=== PATIENT | male | born 1950 | race Caucasian/White ===

== ENCOUNTER 2021-03-20 16:48 | Outpatient (CLI) | payer BC, MEDICARE ==
[2021-03-20 17:56] LABS: Prothrombin Time 10.9 sec (9.5-12.1)
[2021-03-20 17:57] LABS: Anion Gap 13 mmol/L (10-20); BUN (Urea Nitrogen) 25 mg/dL (8.4-25.7); Calc. Creatinine Clearance 0 mL/min (70-130); Calcium 9.3 mg/dL (7.8-10.44); Carbon Dioxide 29 mmol/L (23-31); Chloride 105 mmol/L (98-107); Glucose 80 mg/dL (83-110); Potassium 4.1 mmol/L (3.5-5.1); Sodium 143 mmol/L (136-145)
[2021-03-20 18:05] LABS: Hemoglobin 15.4 g/dL (13.5-17.5); Mean Corpuscular Volume 94.2 fl (81.2-95.1); Mean Platelet Volume 13.5 fl (7.4-10.4); Platelet Count 166 10x3/uL (150-450); Red Blood Cell (RBC) Count 4.96 10x6/uL (4.32-5.72); White Blood Cell (WBC) Count 9.4 10x3/uL (3.5-10.5)
[2021-03-21 12:04] LABS: SARS-CoV-2 PCR by NAA Not Detected (NotDetected)
== END 2021-03-20 16:49 | disposition home or self-care (01) ==
LOC: LABBT 16:48
PROVIDERS: ATTEND Internal Medicine Cardiovascular Disease
DX: Z01.812 Encounter for preprocedural laboratory examination (principal); I48.0 Paroxysmal atrial fibrillation; Z20.822 Contact with and (suspected) exposure to COVID-19
CPT/HCPCS: 80048; 85027; 85610; U0003; U0005

== ENCOUNTER 2021-03-25 06:14 | Day surgery (SDC) | payer MEDICARE, BC ==
[2021-03-24 13:18] VITALS: BMI 31.8
[2021-03-25] MEDS ORDERED: Heparin 25,000 units/D5W 500 ML ONE (06:42)
[2021-03-25] MEDS ORDERED: Heparin 10,000 UNITS/ 10 ML VIAL ONE (06:42)
[2021-03-25] MEDS ORDERED: Fentanyl 100 MCG/2 ML VIAL ONE (07:07)
[2021-03-25] MEDS ORDERED: Glycopyrrolate 0.2 MG/ML 5 ML SYRINGE ONE (08:04)
[2021-03-25] MEDS ORDERED: Rocuronium Bromide 10 MG/ML (10ML VIAL) ONE (08:04)
[2021-03-25] MEDS ORDERED: ePHEDrine 50 MG/ML VIAL ONE (08:04)
[2021-03-25] MEDS ORDERED: Ondansetron PF 4 MG/2 ML Vial ONE (08:04)
[2021-03-25] MEDS ORDERED: PROPOFOL 200 MG/20 ML VIAL ONE (08:04)
[2021-03-25] MEDS ORDERED: Dexamethasone 20 MG/5 ML VIAL ONE (08:04)
[2021-03-25] MEDS ORDERED: Lidocaine 1% PF 5 ML VIAL ONE (08:04)
[2021-03-25] MEDS ORDERED: Protamine Sulfate 50 MG/5 ML VIAL ONE (09:59)
== END 2021-03-25 15:24 | disposition home or self-care (01) ==
LOC: CCL 06:14
PROVIDERS: ATTEND Internal Medicine Cardiovascular Disease
PROC: B24CZZ4 Ultrasonography of Pericardium, Transesophageal (ICD-10-PCS; principal; 2021-03-25)
PROC: B246ZZ4 Ultrasonography of Right and Left Heart, Transesophageal (ICD-10-PCS; 2021-03-25)
PROC: B244ZZ3 Ultrasonography of Right Heart, Intravascular (ICD-10-PCS; 2021-03-25)
PROC: 02583ZZ Destruction of Conduction Mechanism, Percutaneous Approach (ICD-10-PCS; 2021-03-25)
PROC: 02K83ZZ Map Conduction Mechanism, Percutaneous Approach (ICD-10-PCS; 2021-03-25)
DX: I48.0 Paroxysmal atrial fibrillation (principal); I11.9 Hypertensive heart disease without heart failure; I70.0 Atherosclerosis of aorta; E78.5 Hyperlipidemia, unspecified; J44.9 Chronic obstructive pulmonary disease, unspecified; G57.82 Other specified mononeuropathies of left lower limb; Z79.01 Long term (current) use of anticoagulants; Z79.899 Other long term (current) drug therapy; Z88.2 Allergy status to sulfonamides; Z88.5 Allergy status to narcotic agent
CPT/HCPCS: 85347; 93005; 93312; 93613; 93655; 93656; 93657; 93662; C1731; C1732; C1759; C1776; C1894; C2630; J1644; J2720; J3010

== ENCOUNTER → 2023-07-08 | Day surgery (SDC) | payer MEDICARE, BC ==
[2023-07-07 12:01] VITALS: BMI 31.4
[~2023-07-08] MED LIST: PROPOFOL 20 ML ONE
[2023-07-08 09:53] LABS: #Basophils 0.1 thou/uL (0.0-0.2); #Eosinphils 0.3 thou/uL (0.0-0.7); #Monocytes 0.7 thou/uL (0.11-0.59); %Basophils 1.2 % (0.0-1.0); %Eosinophils 3.5 % (0.0-10.0); %Lymphocytes 28.7 % (21.0-51.0); %Monocytes 8.4 % (0.0-10.0); %Neutrophils 57.9 % (42.0-75.0); Hematocrit 49.4 % (42.0-52.0); Hemoglobin 16.9 g/dL (14.0-18.0); Mean Corpuscular HGB CONC 34.2 g/dL (32.0-36.0); Mean Corpuscular Hemoglobin 31.2 pg (27.0-31.0); Mean Corpuscular Volume 91.3 fl (78.0-98.0); Mean Platelet Volume 12.4 fL (7.4-10.4); Platelet Count 220 10x3/uL (130-400); Red Blood Cell (RBC) Count 5.41 mill/uL (4.70-6.10); White Blood Cell (WBC) Count 8.6 10x3/uL (4.8-10.8)
[2023-07-08 10:08] LABS: INR-International Normal Ratio 1.2; Prothrombin Time 15.1 sec (12.0-14.7)
[2023-07-08 10:22] LABS: Anion Gap 13 mmol/L (10-20); BUN (Urea Nitrogen) 20 mg/dL (8.4-25.7); Calc. Creatinine Clearance 74 mL/min (70-130); Calcium 9.3 mg/dL (7.8-10.44); Carbon Dioxide 25 mmol/L (23-31); Chloride 106 mmol/L (98-107); Estimated GFR 51; Glucose 97 mg/dL (83-110); Potassium 4.4 mmol/L (3.5-5.1); Sodium 140 mmol/L (136-145)
== END ==
LOC: SDC 08:27
PROVIDERS: ATTEND Internal Medicine Cardiovascular Disease
PROC: 5A2204Z Restoration of Cardiac Rhythm, Single (ICD-10-PCS; principal; 2023-07-08)
DX: I48.19 Other persistent atrial fibrillation (principal); I48.0 Paroxysmal atrial fibrillation; I10 Essential (primary) hypertension; Z90.49 Acquired absence of other specified parts of digestive tract; Z88.2 Allergy status to sulfonamides; Z88.5 Allergy status to narcotic agent; Z79.01 Long term (current) use of anticoagulants; Z79.899 Other long term (current) drug therapy
CPT/HCPCS: 80048; 85025; 85610; 93005; 93010; J2704

== ENCOUNTER 2024-01-06 06:12 | Day surgery (SDC) | payer MEDICARE, BC ==
[2024-01-05 12:17] VITALS: BMI 31.8
[2024-01-06] MEDS ORDERED: Lidocaine 1% PF 5 ML VIAL ONE (07:57)
[2024-01-06] MEDS ORDERED: PROPOFOL 20 ML ONE (07:58)
== END 2024-01-06 08:57 | disposition home or self-care (01) ==
LOC: SDC 06:12
PROVIDERS: ATTEND Internal Medicine Cardiovascular Disease
PROC: 5A2204Z Restoration of Cardiac Rhythm, Single (ICD-10-PCS; principal; 2024-01-06)
DX: I48.19 Other persistent atrial fibrillation (principal); R00.1 Bradycardia, unspecified; I10 Essential (primary) hypertension; Z92.89 Personal history of other medical treatment; Z98.49 Cataract extraction status, unspecified eye; Z98.890 Other specified postprocedural states; Z90.49 Acquired absence of other specified parts of digestive tract; Z79.01 Long term (current) use of anticoagulants; Z79.899 Other long term (current) drug therapy
CPT/HCPCS: 92960; 93005; J2704; 93010